=== PATIENT | female | born 1955 | race Caucasian/White ===

== ENCOUNTER 2023-08-12 17:13 | Emergency (ER) | payer MEDICARE ==
[~2023-08-12] VITALS: Ht 152.4 cm; Wt 49.9 kg
[2023-08-12 17:38] VITALS: BP 169/91; TEMP 98.7; O2SAT 100
== END 2023-08-12 18:41 | disposition left against medical advice (07) ==
LOC: ER 17:42
DX: I10 Essential (primary) hypertension (principal)